=== PATIENT | male | born 1955 | race African-American/Black ===

== ENCOUNTER 2017-05-23 19:35 | Emergency (ER) | payer OTHER ==
[~2017-05-23 19:35] MED LIST: AMLO5 PO; CONTOUR1 XX; DICL75 PO; HYDR-3533 PO; LOVA20TA PO; METF500 PO
[2017-05-23 19:37] VITALS: BP 163/86; PULSE 90; RESP 16; TEMP 98.5; O2SAT 98
[2017-05-23] MEDS ORDERED: VANCOMYCIN INJ 1,000 MG in SODIUM CHLOR 0.9% 250 ML INJ 250 ML IV ONE (21:45)
[2017-05-23] MEDS ORDERED: PIPERACIL-TAZO 3.375 GM PREMIX 50 ML IV ONE (21:45)
--- NOTE | 2017-05-23 22:03 | PD ---
HPI Chief Complaint: Skin Problem Time Seen by Provider: 21:58 Travel History International Travel<30 days: No Contact w/Intl Traveler<30days: No Traveled to known affect area: No History of Present Illness HPI 61-year-old male that presents to the ED for evaluation of possible infection to his right foot. Per patient he is diabetic. Per patient she's had this once for about 3 weeks. Per patient he is not going evaluated for this because he they will go away. Patient does have what appears to be significant swelling to the fifth and fourth toes of the right foot. He states that they' re painful 8 out of 10. He denies any fevers chills or sweats. He states compliance with his metformin. He denies any chest pain or shortness of breath. Denies any IV drug abuse. No immunosuppression. Patient denies any trauma to the foot. No allergies to medication. Per patient he mainly came here because his not getting better he is concerned because of his diabetes. No history of MRSA. PFSH Past Medical History Asthma: No Autoimmune Disease: No Heart Rhythm Problems: No Cancer: No Cardiac Catheterization: No Cardiovascular Problems: Yes (stress test 2 years ago; cp currently ) High Cholesterol: No Chest Pain: No Congestive Heart Failure: No COPD: No Diabetes: Yes Patient Takes Glucophage: Yes Diminished Hearing: No Endocrine: No Gastrointestinal Disorders: No Genitourinary: Yes Hypertension: Yes Immune Disorder: No Implanted Vascular Access Dvce: No Kidney Stones: Yes (13 YEARS AGO) Musculoskeletal: No Neurologic: No Psychiatric: No Reproductive: No Respiratory: No Immunizations Current: Yes Renal Failure: No Sickle Cell Disease: No Sleep Apnea: No Thyroid Disease: No Past Surgical History AICD: No Arteriovenous Shunt: No Coronary Artery Bypass Graft: No Insulin Pump: No Joint Replacement: No Pacemaker: No Other Surgery: No Family History Family Myocardial Infarction: Yes (grandmother ) Social History Alcohol Use: Yes (OCCASIONAL BEER OR WINE) Tobacco Use: No Substance Use: No Allergies-Medications (Allergen,Severity, Reaction): Coded Allergies: No Known Allergies (Verified , 05/23/17) Reported Meds & Prescriptions Reported Meds & Active Scripts Active Diclofenac Sodium 75 Mg Tab 75 Mg PO BID PRN Lortab 5 mg/325 mg (Hydrocodone/Acetaminophen 5 mg/325 mg) 1 Tab 1 Tab PO Q6H PRN Norvasc (Amlodipine Besylate) 5 Mg Tab 5 Mg PO DAILY Lovastatin 20 Mg Tab 20 Mg PO HS Glucophage 500 mg (Metformin HCl) 500 Mg Tab 500 Mg PO BIDPC Contour Blood Glucose Test Strip #100 (Blood Glucose Test Strips) Strp 1 Strip XX DIRECTED contour next strips Review of Systems Except as stated in HPI: all other systems reviewed are Neg Physical Exam Narrative GENERAL: SKIN: Warm and dry. HEAD: Atraumatic. Normocephalic. EYES: Pupils equal and round. No scleral icterus. No injection or drainage. ENT: No nasal bleeding or discharge. Mucous membranes pink and moist. Tongue is midline. No uvula deviation. NECK: Trachea midline. No JVD. CARDIOVASCULAR: Regular rate and rhythm. No murmurs, S3, S4. RESPIRATORY: No accessory muscle use. Clear to auscultation. Breath sounds equal bilaterally. GASTROINTESTINAL: Abdomen soft, non-tender, nondistended. Hepatic and splenic margins not palpable. MUSCULOSKELETAL: Extremities without clubbing, cyanosis, or edema. No obvious deformities. Full range of motion of the upper and lower extremities bilaterally. Patient does have what appears to be purulence and swelling of the fifth and fourth toes. Most of the purulence appears to be on the basis of the digits. Very tender to touch. Able to move it. Fifth digit itself is twice the size as compared to the one on the left foot. Warm to the touch and red. NEUROLOGICAL: Awake and alert. No obvious cranial nerve deficits. Motor grossly within normal limits. Five out of 5 muscle strength in the arms and legs. Normal speech. PSYCHIATRIC: Appropriate mood and affect; insight and judgment normal. Data Data Last Documented VS Vital Signs Date Time Temp Pulse Resp B/P Pulse Ox O2 Delivery O2 Flow Rate FiO2 05/23/17 19:37 98.5 90 16 163/86 98 Room Air Orders Complete Blood Count With Diff (05/23/17 21:33) Basic Metabolic Panel (Bmp) (05/23/17 21:33) Blood Culture (05/23/17 21:33) C-Reactive Protein (Crp) (05/23/17 21:33) Wound Culture And Gram Stain (05/23/17 21:33) Iv Access Insert/Monitor (05/23/17 21:33) Vancomycin Inj (Vancomycin Inj) (05/23/17 21:45) Toe (Min 2vws) (05/23/17 ) Piperacil-Tazo 3.375 Gm Premix (Zosyn 3. (05/23/17 21:45) Labs Laboratory Tests Test 05/23/17 22:00 White Blood Count 7.0 TH/MM3 Red Blood Count 4.78 MIL/MM3 Hemoglobin 13.1 GM/DL Hematocrit 38.7 % Mean Corpuscular Volume 81.1 FL Mean Corpuscular Hemoglobin 27.5 PG Mean Corpuscular Hemoglobin 33.8 % Concent Red Cell Distribution Width 14.9 % Platelet Count 318 TH/MM3 Mean Platelet Volume 7.2 FL Neutrophils (%) (Auto) 44.0 % Lymphocytes (%) (Auto) 39.8 % Monocytes (%) (Auto) 10.8 % Eosinophils (%) (Auto) 4.3 % Basophils (%) (Auto) 1.1 % Neutrophils # (Auto) 3.1 TH/MM3 Lymphocytes # (Auto) 2.8 TH/MM3 Monocytes # (Auto) 0.8 TH/MM3 Eosinophils # (Auto) 0.3 TH/MM3 Basophils # (Auto) 0.1 TH/MM3 CBC Comment DIFF FINAL Differential Comment MDM Medical Decision Making Medical Screen Exam Complete: Yes Emergency Medical Condition: Yes Medical Record Reviewed: Yes Differential Diagnosis Cellulitis versus joint infection versus osteomyelitis versus diabetic ulcer Narrative Course 61-year-old male that presents to the ED for evaluation of toe infection. Patient was properly examined and was found to have signs and symptoms consistent what appears to be toe infection. Patient is diabetic. At this time , labs and imaging and likely admission. Patient was started on Vancomycin as well as Zosyn. Labs and imaging pending at the writing of this note. Case and at the my attending pending labs and disposition. Hernan Nassar May 23, 2017 22:03
--- NOTE | 2017-05-23 22:15 | RADRPT ---
EXAM DATE/TIME: 05/23/2017 22:00 [facility] COMPARISON: No previous studies available for comparison. INDICATIONS : Patient has infection in fourth and fifth digits. MEDICAL HISTORY : None. SURGICAL HISTORY : None. ENCOUNTER: Initial ACUITY: 3 weeks PAIN SCORE: 5/10 LOCATION: Right Foot. FINDINGS: There is chronic contracture of the fifth digit. No definite fractures, dislocations, lytic, or scler otic lesions are seen. No definite signs of osteomyelitis. CONCLUSION: No definite signs of osteomyelitis. Soy Daniels MD on May 23, 2017 at 22:12 Board Certified Radiologist. This report was verified electronically.
[2017-05-23 22:28] LABS: AUTOMATED NEUTROPHIL # 3.1 TH/MM3 (1.8-7.7); BASOPHIL # 0.1 TH/MM3 (0-0.2); BASOPHIL % 1.1 % (0.0-2.0); EOSINOPHIL # 0.3 TH/MM3 (0-0.4); EOSINOPHIL % 4.3 % (0.0-4.0); HEMATOCRIT 38.7 % (39.0-51.0); HEMO FLAGS DIFF FINAL; LYMPH % 39.8 % (9.0-44.0); LYMPHOCYTE # 2.8 TH/MM3 (1.0-4.8); MEAN CELL VOLUME 81.1 FL (80.0-100.0); MEAN CORPUSCULAR HEMOGLOBIN 27.5 PG (27.0-34.0); MEAN CORPUSCULAR HGB CONC 33.8 % (32.0-36.0); MONO % 10.8 % (0.0-8.0); PLATELET COUNT 318 TH/MM3 (150-450); RED BLOOD COUNT 4.78 MIL/MM3 (4.50-5.90); RED CELL DISTRIBUTION WIDTH 14.9 % (11.6-17.2)
[2017-05-23 23:01] LABS: ANION GAP 11 MEQ/L (5-15); BICARBONATE 24.8 MEQ/L (21.0-32.0); BLOOD UREA NITROGEN 20 MG/DL (7-18); CHLORIDE 104 MEQ/L (98-107); GLOMERULAR FILTRATION RATE 100 ML/MIN (>89); POTASSIUM 3.8 MEQ/L (3.5-5.1); SODIUM (NA) 140 MEQ/L (136-145)
[2017-05-23] MEDS ORDERED: CLIN1CAP6 PO (23:15)
--- NOTE | 2017-05-23 23:15 | PD ---
Data Data Last Documented VS Vital Signs Date Time Temp Pulse Resp B/P Pulse Ox O2 Delivery O2 Flow Rate FiO2 05/23/17 19:37 98.5 90 16 163/86 98 Room Air Orders Complete Blood Count With Diff (05/23/17 21:33) Basic Metabolic Panel (Bmp) (05/23/17 21:33) Blood Culture (05/23/17 21:33) C-Reactive Protein (Crp) (05/23/17 21:33) Wound Culture And Gram Stain (05/23/17 21:33) Iv Access Insert/Monitor (05/23/17 21:33) Vancomycin Inj (Vancomycin Inj) (05/23/17 21:45) Toe (Min 2vws) (05/23/17 ) Piperacil-Tazo 3.375 Gm Premix (Zosyn 3. (05/23/17 21:45) Labs Laboratory Tests Test 05/23/17 22:00 White Blood Count 7.0 TH/MM3 Red Blood Count 4.78 MIL/MM3 Hemoglobin 13.1 GM/DL Hematocrit 38.7 % Mean Corpuscular Volume 81.1 FL Mean Corpuscular Hemoglobin 27.5 PG Mean Corpuscular Hemoglobin 33.8 % Concent Red Cell Distribution Width 14.9 % Platelet Count 318 TH/MM3 Mean Platelet Volume 7.2 FL Neutrophils (%) (Auto) 44.0 % Lymphocytes (%) (Auto) 39.8 % Monocytes (%) (Auto) 10.8 % Eosinophils (%) (Auto) 4.3 % Basophils (%) (Auto) 1.1 % Neutrophils # (Auto) 3.1 TH/MM3 Lymphocytes # (Auto) 2.8 TH/MM3 Monocytes # (Auto) 0.8 TH/MM3 Eosinophils # (Auto) 0.3 TH/MM3 Basophils # (Auto) 0.1 TH/MM3 CBC Comment DIFF FINAL Differential Comment Sodium Level 140 MEQ/L Potassium Level 3.8 MEQ/L Chloride Level 104 MEQ/L Carbon Dioxide Level 24.8 MEQ/L Anion Gap 11 MEQ/L Blood Urea Nitrogen 20 MG/DL Creatinine 0.94 MG/DL Estimat Glomerular Filtration 100 ML/MIN Rate Random Glucose 81 MG/DL Calcium Level 8.8 MG/DL C-Reactive Protein LESS THAN 0.29 MG/DL MDM Supervised Visit with TIMI: Yes Narrative Course I, Dr. Manrique, have reviewed the advance practice practioner's documentation and am in agreement, met with the patient face to face, made the diagnosis, and the medical decision making was done by me. 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 He's had increasing swelling to the right fourth and fifth toes for the last 3 weeks, malodorous discharge. On exam there is hypertrophic tissues in between the webspaces of the third and fourth, fourth and fifth toes with malodorous discharge, this is sent for culture. No evidence of erythema. Differential includes cellulitis, wound infection, diabetic ulcer, less likely osteomyelitis. X-ray does not show any evidence of ostia, lab results were unremarkable. Wound culture sent. 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 Will start on clindamycin recommend he follow up with Dr. Collado on Thursday and wound care clinic where these already established. Diagnosis Primary Impression: Diabetic ulcer of toe Referrals: Mehnaz Collado MD 2 days Additional Instruction: Finish antibiotics as prescribed. Follow with Dr. Collado in the wound care clinic as discussed. Return to the ER for the warning signs discussed. Med/Other Pt SpecificInfo: Prescription(s) given Scripts Clindamycin 300 Mg Gmc265 Mg PO TID #21 CAP Ref 0 Prov:Jane Manrique MD 05/23/17 Disposition: 01 DISCHARGE HOME Condition: Stable Jane Manrique MD May 23, 2017 23:15
== END 2017-05-24 00:45 | disposition home or self-care (01) ==
LOC: NEPE 19:35
DX: E11.621 Type 2 diabetes mellitus with foot ulcer (principal); L97.519 Non-pressure chronic ulcer of other part of right foot with unspecified severity; B95.4 Other streptococcus as the cause of diseases classified elsewhere; B96.89 Other specified bacterial agents as the cause of diseases classified elsewhere; Z79.84 Long term (current) use of oral hypoglycemic drugs
CPT/HCPCS: 73660; 80048; 85025; 86140; 86403; 87040; 87070; 87185; 96365; 96366; 96367; 99284; J2543; J3370; J7050; 87205